=== PATIENT | female | born 1995 | race Caucasian/White ===

== ENCOUNTER 2019-07-25 21:58 | Emergency (ER) | payer OTHER ==
--- NOTE | 2019-07-25 22:17 | ED ---
Head Injury - HPI Summary HPI Summary: Patient complains of feeling woozy after standing up hitting the back of her head on a steel post this morning. Denies LOC, and/V, vision change, imbalance , amnesia, headache, any other pain injury or symptoms. No anti-coag. - History Of Current Complaint Chief Complaint: EDHeadInjury Stated Complaint: "CONCUSSION PER PT" Time Seen by Provider: 07/25/19 22:11 Hx Obtained From: Patient Mechanism Of Injury: Blunt Trauma Onset/Duration: Started Hours Ago Onset of Pain: Immediate Severity Currently: Mild Severity Initially: Mild Pain Intensity: 2 Pain Scale Used: 0-10 Numeric Location of Head Injury: Occipital Character: Dull Associated Signs And Symptoms: Negative - Allergies/Home Medications Allergies/Adverse Reactions: Allergies Allergy/AdvReac Type Severity Reaction Status Date / Time No Known Allergies Allergy Verified 07/25/19 22:02 PMH/Surg Hx/FS Hx/Imm Hx Endocrine/Hematology History: Denies: Hx Anticoagulant Therapy Cardiovascular History: Denies: Hx Pacemaker/ICD History: Denies: Hx Dialysis Sensory History: Denies: Hx Eye Prosthesis Opthamlomology History: Denies: Hx Legally Blind EENT History: Denies: Hx Deafness Neurological History: Denies: Hx Dementia Infectious Disease History: No Infectious Disease History: Denies: Traveled Outside the [place] in Last 30 Days - Family History Known Family History: Positive: Non-Contributory - Social History Alcohol Use: Occasionally Hx Substance Use: No Hx Tobacco Use: No Review of Systems Constitutional: Negative Eyes: Negative ENT: Negative Cardiovascular: Negative Respiratory: Negative Gastrointestinal: Negative Genitourinary: Negative Musculoskeletal: Negative Skin: Negative Neurological: Negative Psychological: Normal All Other Systems Reviewed And Are Negative: Yes Physical Exam - Summary Physical Exam Summary: Neuro exam normal. Small hematoma to the posterior head with no evidence of bone. No other evidence of trauma to mouth, face. Full range of motion of jaw and neck. No pain with palpation of neck. Triage Information Reviewed: Yes Vital Signs On Initial Exam: Initial Vitals Temp Pulse Resp BP Pulse Ox 99.6 F 79 18 154/93 99 07/25/19 21:59 07/25/19 21:59 07/25/19 21:59 07/25/19 21:59 07/25/19 21:59 Vital Signs Reviewed: Yes Appearance: Positive: Well-Appearing Skin: Positive: Warm Head/Face: Positive: Normal Head/Face Inspection Eyes: Positive: Normal ENT: Positive: Normal ENT inspection Dental: Negative: Dental Fracture @, Bleeding Neck: Positive: Supple Respiratory/Lung Sounds: Positive: Clear to Auscultation Cardiovascular: Positive: Normal Abdomen Description: Positive: Nontender Musculoskeletal: Positive: Normal Neurological: Positive: Normal Psychiatric: Positive: Normal AVPU Assessment: Alert - [place] Coma Scale Best Eye Response: 4 - Spontaneous Best Motor Response: 6 - Obeys Commands Best Verbal Response: 5 - Oriented Coma Scale Total: 15 Procedures - Sedation Patient Received Moderate/Deep Sedation with Procedure: No Diagnostics - Vital Signs Vital Signs Temp Pulse Resp BP Pulse Ox 07/25/19 21:59 99.6 F 79 18 154/93 99 - Laboratory Lab Statement: Any lab studies that have been ordered have been reviewed, and results considered in the medical decision making process. Head Injury Course/Dx Course Of Treatment: Patient complains of feeling woozy after standing up hitting the back of her head on a steel post this morning. Denies LOC, and/V, vision change, imbalance, amnesia, headache, any other pain injury or symptoms. No anti-coag. Vital signs within normal limits. Patient does not meet criteria for head CT. Likely concussion symptoms. Rx for meclizine. - Diagnoses Provider Diagnoses: Head injury, Concussion Discharge ED - Sign-Out/Discharge Documenting (check all that apply): Patient Departure - Discharge Plan Condition: Stable Disposition: HOME Prescriptions: Meclizine HCl 25 mg PO TID 4 Days #12 tab.chew Patient Education Materials: Concussion (ED), Head Injury (ED) Referrals: No Primary Care Phys,NOPCP [Primary Care Provider] - Additional Instructions: Avoid activities where there is risk of repeat head injury until cleared by primary care. Take Tylenol or ibuprofen for headache. Take meclizine for dizziness. Return to the ED for any new or worsening symptoms. - Billing Disposition and Condition Condition: STABLE Disposition: Home
[2019-07-25] MEDS ORDERED: Meclizine TAB* 12.5 MG PO ONE ×3 (22:27→23:00)
[2019-07-25] MEDS ORDERED: Ibuprofen TAB* 600 MG PO ONE (22:27)
[2019-07-25 23:06] VITALS: BP 127/84
== END 2019-07-25 22:41 | disposition home or self-care (01) ==
LOC: ED 21:58
DX: S06.0X0A Concussion without loss of consciousness, initial encounter (principal); S00.03XA Contusion of scalp, initial encounter; W18.09XA Striking against other object with subsequent fall, initial encounter; Y92.9 Unspecified place or not applicable
CPT/HCPCS: 99282; A9270-GY